=== PATIENT | male | born 1990 | race Two or more races ===

== ENCOUNTER 2017-07-16 02:44 | Emergency (ER) | payer SELFPAY ==
[~2017-07-16] VITALS: Ht 177.8 cm; Wt 95.3 kg
[2017-07-16 08:00] VITALS: BP 153/95
== END 2017-07-16 08:00 | disposition home or self-care (01) ==
LOC: ER 02:49
DX: S81.812A Laceration without foreign body, left lower leg, initial encounter (principal); S86.912A Strain of unspecified muscle(s) and tendon(s) at lower leg level, left leg, initial encounter; S86.911A Strain of unspecified muscle(s) and tendon(s) at lower leg level, right leg, initial encounter; S66.911A Strain of unspecified muscle, fascia and tendon at wrist and hand level, right hand, initial encounter; V49.9XXA Car occupant (driver) (passenger) injured in unspecified traffic accident, initial encounter; Y93.89 Activity, other specified; Y92.89 Other specified places as the place of occurrence of the external cause; Y99.8 Other external cause status
CPT/HCPCS: 73110; 73590; 73630

== ENCOUNTER 2020-07-29 19:04 | Emergency (ER) | payer MEDICAID, OTHER ==
[~2020-07-29] VITALS: Ht 180.3 cm; Wt 97.5 kg
[2020-07-29 19:06] VITALS: BP 179/114
== END 2020-07-30 00:53 | disposition left against medical advice (07) ==
LOC: ER 19:04
DX: F41.9 Anxiety disorder, unspecified (principal); I10 Essential (primary) hypertension; Z53.21 Procedure and treatment not carried out due to patient leaving prior to being seen by health care provider

== ENCOUNTER 2022-03-05 20:20 | Inpatient (IN) | payer OTHER, MEDICAID ==
[~2022-03-05] VITALS: Ht 180.3 cm; Wt 101.3 kg
[2022-03-05] MEDS ORDERED: KETOROLAC TROMETH 30 MG/ML 1ML VIAL IV ONE (20:45)
[2022-03-05] MEDS ORDERED: ONDANSETRON HCL 4 MG/2 ML VIAL IV ONE (20:45)
[2022-03-05 21:44] LABS: Basophils # (auto) 0.1 10 ^3/uL (0-0.2); Lymphocytes # (auto) 2.4 10 ^3/uL (0.4-5.4); Neutrophils % (auto) 74.6 % (37.0-80.0); Red Blood Cells 5.29 10^6/uL (4.5-5.90)
[2022-03-05 21:46] LABS: Basophils % (auto) 0.4 % (0.0-2.0); Eosinophils # (auto) 0.4 10 ^3/uL (0-0.8); Eosinophils % (auto) 2.2 % (0.0-7.0); Hematocrit 36.6 % (41.0-53.0); Mean Corpuscular Hemoglobin 20.7 pg (28.0-32.0); Mean Corpuscular Hgb Conc. 29.9 g/dL (32.0-36.0); Mean Corpuscular Volume 69.2 fL (80.0-100.0); Monocytes # (auto) 1.5 10 ^3/uL (0-1.3); Monocytes % (auto) 8.8 % (0.0-12.0); White Blood Cell 17.4 10^3/uL (4.4-10.8)
[2022-03-05 21:59] LABS: Calcium 9.7 mg/dL (8.5-10.1); Potassium 3.6 mmol/L (3.5-5.1)
[2022-03-05 22:02] LABS: Bilirubin, Total 0.3 mg/dL (0.2-1.0); Total Protein 7.6 g/dL (6.4-8.2)
[2022-03-05] MEDS ORDERED: cefTRIAXone 1GM/50ML D5W 50 ML IV ONE (22:45)
[2022-03-05] MEDS ORDERED: SODIUM CHLORIDE 0.9% 1,000 ML IV ONE (22:45)
[2022-03-05] MEDS ORDERED: HYDROmorphone HCL 2 MG/ML VL/or syr IV ONE (22:45)
[2022-03-06] VITALS (8 sets, daily range): BP systolic 115–137; BP diastolic 72–89
[2022-03-06 00:52] LABS: Urine Bacteria NONE SEEN /hpf (None Seen); Urine Blood 1+ /uL (Negative); Urine Specific Gravity 1.021 (1.001-1.035); Urine WBC <1 /hpf (0 - 3)
[2022-03-06] MEDS ORDERED: TAMSULOSIN HYDROCHLORIDE 0.4 MG CAP PO ONE (01:30)
[2022-03-06] MEDS ORDERED: HYDROmorphone HCL 2 MG/ML VL/or syr IV ONE (02:15)
[2022-03-06] MEDS ORDERED: ONDANSETRON HCL 4 MG/2 ML VIAL IV ONE (02:15)
[2022-03-06] MEDS ORDERED: TEMAZEPAM 15 MG CAP PO PRN (03:00)
[2022-03-06] MEDS ORDERED: ACETAMINOPHEN 325 MG TAB PO PRN (03:00)
[2022-03-06] MEDS ORDERED: ONDANSETRON HCL 4 MG/2 ML VIAL IV PRN (03:00)
[2022-03-06] MEDS: HYDROcodone-ACET 5/325MG TAB PO PRN ×2 (05:29→21:41)
[2022-03-06] MEDS: PANTOPRAZOLE 40 MG TAB PO SCH (09:31)
[2022-03-06] MEDS: MORPHINE SULFATE INJ 2 MG/ml SYRG IV PRN (09:31)
[2022-03-06 10:04] LABS: INR 1.16 (0.9-1.15)
[2022-03-06] MEDS ORDERED: fentaNYL CITRATE 100 MCG/2 ML VL ONE (12:03)
[2022-03-06] MEDS ORDERED: MIDAZOLAM HCL 2MG/2ML 2ml VIAL (1mg/ml) ONE (12:03)
[2022-03-06] MEDS: cefTRIAXone 1GM/50ML D5W 50 ML IV SCH (21:41)
[2022-03-07 05:00] VITALS: BP 129/75
[2022-03-07 06:16] LABS: Hemoglobin 10.4 g/dL (13.5-17.5); Lymphocytes # (auto) 2.1 10 ^3/uL (0.4-5.4); Nucleated Red Blood Cells % 0.1 %
[2022-03-07 06:22] LABS: Basophils # (auto) 0.1 10 ^3/uL (0-0.2); Basophils % (auto) 0.8 % (0.0-2.0); Eosinophils # (auto) 0.1 10 ^3/uL (0-0.8); Eosinophils % (auto) 1.1 % (0.0-7.0); Hematocrit 34.7 % (41.0-53.0); Lymphocytes % (auto) 20.8 % (10.0-50.0); Mean Corpuscular Hemoglobin 20.7 pg (28.0-32.0); Mean Corpuscular Hgb Conc. 29.9 g/dL (32.0-36.0); Mean Corpuscular Volume 69.3 fL (80.0-100.0); Monocytes # (auto) 0.9 10 ^3/uL (0-1.3); Monocytes % (auto) 9.2 % (0.0-12.0); Neutrophils # (auto) 6.9 10 ^3/uL (1.6-8.6); Neutrophils % (auto) 68.1 % (37.0-80.0); Red Blood Cells 5.01 10^6/uL (4.5-5.90); Red Cell Distribution Width 16.6 % (11.8-14.3); White Blood Cell 10.1 10^3/uL (4.4-10.8)
[2022-03-07 06:36] LABS: Potassium 4.1 mmol/L (3.5-5.1)
[2022-03-07 06:52] LABS: Albumin 3.5 g/dL (3.4-5.0); BUN/Creatinine Ratio 11.6; Bilirubin, Total 0.6 mg/dL (0.2-1.0); Total Protein 6.7 g/dL (6.4-8.2)
[2022-03-07 09:05] VITALS: BP 127/60
[2022-03-07] MEDS: HYDROcodone-ACET 5/325MG TAB PO PRN (09:38)
[2022-03-07] MEDS: PANTOPRAZOLE 40 MG TAB PO SCH (09:38)
[2022-03-07 13:00] VITALS: BP 129/78
[2022-03-07 16:19] VITALS: BP 128/88
[2022-03-07] MEDS: MORPHINE SULFATE INJ 2 MG/ml SYRG IV PRN (18:05)
[2022-03-07 22:00] VITALS: BP 141/86
[2022-03-07] MEDS: cefTRIAXone 1GM/50ML D5W 50 ML IV SCH (22:17)
[2022-03-08 05:00] VITALS: BP 127/55
[2022-03-08 05:22] LABS: Basophils # (auto) 0.1 10 ^3/uL (0-0.2); Basophils % (auto) 0.8 % (0.0-2.0); Eosinophils # (auto) 0.2 10 ^3/uL (0-0.8); Eosinophils % (auto) 2.7 % (0.0-7.0); Hematocrit 33.5 % (41.0-53.0); Lymphocytes % (auto) 27.2 % (10.0-50.0); Mean Corpuscular Hemoglobin 20.7 pg (28.0-32.0); Mean Corpuscular Hgb Conc. 29.7 g/dL (32.0-36.0); Mean Corpuscular Volume 69.6 fL (80.0-100.0); Monocytes # (auto) 0.9 10 ^3/uL (0-1.3); Monocytes % (auto) 12.6 % (0.0-12.0); Neutrophils # (auto) 4.2 10 ^3/uL (1.6-8.6); Neutrophils % (auto) 56.7 % (37.0-80.0); Red Blood Cells 4.82 10^6/uL (4.5-5.90); Red Cell Distribution Width 16.7 % (11.8-14.3); White Blood Cell 7.3 10^3/uL (4.4-10.8)
[2022-03-08 05:37] LABS: INR 1.16 (0.9-1.15); Partial Thromboplastin Time 29.6 sec (24.6-33.4)
[2022-03-08 05:39] LABS: Albumin 3.3 g/dL (3.4-5.0); Calcium 8.6 mg/dL (8.5-10.1); Potassium 4.1 mmol/L (3.5-5.1)
[2022-03-08 05:43] LABS: BUN/Creatinine Ratio 16.5; Bilirubin, Total 0.3 mg/dL (0.2-1.0); Total Protein 6.4 g/dL (6.4-8.2)
[2022-03-08] MEDS: MORPHINE SULFATE INJ 2 MG/ml SYRG IV PRN (07:20)
[2022-03-08 08:00] VITALS: BP 143/91
[2022-03-08 09:00] VITALS: BP 143/91
[2022-03-08] MEDS: PANTOPRAZOLE 40 MG TAB PO SCH (10:00)
[2022-03-08 13:00] VITALS: BP 141/90
[2022-03-08] MEDS ORDERED: CIPROFLOXACIN 400MG/200ML 200 ML IV ONE (13:42)
[2022-03-08] MEDS ORDERED: IOHEXOL 300 MG/ML 100ML BOTTLE IJ ONE (14:23)
[2022-03-08] MEDS ORDERED: SODIUM CHLORIDE LOCK 10 ML ONE (14:57)
[2022-03-08] MEDS ORDERED: ePHEDrine SULFATE 50 MG/ML AMP ONE (15:21)
[2022-03-08 17:00] VITALS: BP 148/93
[2022-03-08] MEDS ORDERED: DOCUSATE SOD 100 MG CAP PO ONE (21:15)
[2022-03-08] MEDS: cefTRIAXone 1GM/50ML D5W 50 ML IV SCH (21:48)
[2022-03-08 22:00] VITALS: BP 140/83
[2022-03-09 05:00] VITALS: BP 118/62
[2022-03-09 05:47] LABS: Basophils # (auto) 0 10 ^3/uL (0-0.2); Eosinophils # (auto) 0 10 ^3/uL (0-0.8); Hematocrit 34.5 % (41.0-53.0); Hemoglobin 10.3 g/dL (13.5-17.5); Lymphocytes % (auto) 11.2 % (10.0-50.0); Mean Corpuscular Hemoglobin 20.8 pg (28.0-32.0); Mean Corpuscular Volume 69.4 fL (80.0-100.0); Monocytes # (auto) 0.3 10 ^3/uL (0-1.3); Monocytes % (auto) 3.5 % (0.0-12.0); Neutrophils # (auto) 7.6 10 ^3/uL (1.6-8.6); Neutrophils % (auto) 85.3 % (37.0-80.0); Red Blood Cells 4.97 10^6/uL (4.5-5.90); Red Cell Distribution Width 16.8 % (11.8-14.3); White Blood Cell 8.9 10^3/uL (4.4-10.8)
[2022-03-09 06:01] LABS: Albumin 3.6 g/dL (3.4-5.0); Calcium 9.2 mg/dL (8.5-10.1); Potassium 4.3 mmol/L (3.5-5.1)
[2022-03-09 06:05] LABS: BUN/Creatinine Ratio 18.5; Bilirubin, Total 0.3 mg/dL (0.2-1.0)
[2022-03-09 08:00] VITALS: BP 117/78
[2022-03-09] MEDS: PANTOPRAZOLE 40 MG TAB PO SCH (09:54)
[2022-03-09 12:00] VITALS: BP 141/82
[2022-03-09 16:00] VITALS: BP 145/91
[2022-03-09] MEDS ORDERED: LEVO-28 PO (20:20)
[2022-03-09] MEDS ORDERED: levoFLOXacin 250 MG TAB PO ONE (20:30)
== END 2022-03-09 21:14 | disposition home or self-care (01) | DRG 690 ==
LOC: ER 20:24 → OVERFLOW 03-06 02:50 → WEST WING 03-06 13:37
PROVIDERS: ADMIT Nurse Practitioner; ATTEND Student in an Organized Health Care Education/Training Program
PROC: 0T9130Z Drainage of Left Kidney with Drainage Device, Percutaneous Approach (ICD-10-PCS; principal; 2022-03-06)
PROC: BT42ZZZ Ultrasonography of Left Kidney (ICD-10-PCS; 2022-03-06)
PROC: BT121ZZ Fluoroscopy of Left Kidney using Low Osmolar Contrast (ICD-10-PCS; 2022-03-06)
DX: N13.6 Pyonephrosis (principal); N20.2 Calculus of kidney with calculus of ureter; N17.9 Acute kidney failure, unspecified; I10 Essential (primary) hypertension; E78.5 Hyperlipidemia, unspecified; Z20.822 Contact with and (suspected) exposure to COVID-19; E66.9 Obesity, unspecified; Z68.31 Body mass index [BMI] 31.0-31.9, adult; Z82.49 Family history of ischemic heart disease and other diseases of the circulatory system; Z93.6 Other artificial openings of urinary tract status
CPT/HCPCS: 36415; 50432; 71045; 74018; 74176; 74425; 76942; 80053; 81001; 82360; 83690; 85025; 85610; 85730; 86850; 86900; 86901; 87040; 87086; 87426; 96365; 96375; 96376; 99152; C1729; G0378; J0696; J1885; J2250; J2405